=== PATIENT | female | born 1955 | race Caucasian/White ===

== ENCOUNTER 2021-03-18 13:38 | Inpatient (IN) | payer MEDICARE ==
[2021-03-18] MEDS ORDERED: Pantoprazole 40 MG VIAL ONE (14:25)
[2021-03-18 14:42] LABS: #Basophils 0.1 10x3/uL (0.0-0.2); #Eosinphils 0.2 10x3/uL (0.0-0.5); #Monocytes 0.4 10x3/uL (0.0-1.1); #Neutrophils 5.3 10x3/uL (1.5-8.4); %Basophils 0.8 % (0.0-2.0); %Eosinophils 2.9 % (0.0-6.0); %Lymphocytes 19.9 % (18.0-47.0); %Monocytes 5.3 % (0.0-10.0); %Neutrophils 70.6 % (40.0-75.0); Hemoglobin 8.9 g/dL (12.0-15.5); Mean Corpuscular HGB CONC 30.8 g/dL (32.0-36.0); Mean Corpuscular Hemoglobin 24.9 pg (27.0-33.0); Mean Platelet Volume 10.2 fl (7.4-10.4); Platelet Count 412 10x3/uL (150-450); Red Blood Cell (RBC) Count 3.57 10x6/uL (3.90-5.03); White Blood Cell (WBC) Count 7.5 10x3/uL (3.5-10.5)
[2021-03-18 15:00] LABS: ALT (SGPT) 8 U/L (8-55); AST (SGOT) 14 U/L (5-34); Albumin 2.1 g/dL (3.4-4.8); Alkaline Phosphatase 171 U/L (40-110); Anion Gap 20 mmol/L (10-20); BUN (Urea Nitrogen) 61 mg/dL (9.8-20.1); Bilirubin, Total 0.2 mg/dL (0.2-1.2); Calc. Creatinine Clearance 0 mL/min (70-130); Calcium 7.7 mg/dL (7.8-10.44); Carbon Dioxide 20 mmol/L (23-31); Chloride 99 mmol/L (98-107); Globulin 3.9 g/dL (2.4-3.5); Glucose 82 mg/dL (80-115); Lipase 27 U/L (8-78); Magnesium 3.8 mg/dL (1.6-2.6); Potassium 4.2 mmol/L (3.5-5.1); Sodium 135 mmol/L (136-145)
[2021-03-18] MEDS ORDERED: Cefepime 2 GM VIAL ONE (15:27)
[2021-03-18] MEDS ORDERED: Lorazepam 2 MG/ML VIAL ONE (16:57)
[2021-03-18 20:32] VITALS: BMI 23.9
[2021-03-18] MEDS: traZODone HCl 50 MG TAB PO SCH (21:11)
[2021-03-18] MEDS: Heparin 5,000 UNITS/ML VIAL SC SCH (21:11)
[2021-03-19 06:19] LABS: #Eosinphils 0.2 10x3/uL (0.0-0.5); #Monocytes 0.4 10x3/uL (0.0-1.1); #Neutrophils 5.8 10x3/uL (1.5-8.4); %Basophils 0.5 % (0.0-2.0); %Eosinophils 2.3 % (0.0-6.0); %Lymphocytes 16.8 % (18.0-47.0); %Monocytes 4.5 % (0.0-10.0); %Neutrophils 75.3 % (40.0-75.0); Mean Corpuscular Hemoglobin 24.7 pg (27.0-33.0); Mean Corpuscular Volume 79.6 fl (81.6-98.3); Mean Platelet Volume 10.2 fl (7.4-10.4); Platelet Count 376 10x3/uL (150-450); RBC Distribution Width 15.3 % (11.5-14.5); Red Blood Cell (RBC) Count 3.24 10x6/uL (3.90-5.03); White Blood Cell (WBC) Count 7.7 10x3/uL (3.5-10.5)
[2021-03-19 06:22] LABS: Anion Gap 19 mmol/L (10-20); BUN (Urea Nitrogen) 53 mg/dL (9.8-20.1); Calc. Creatinine Clearance 5 mL/min (70-130); Calcium 7.7 mg/dL (7.8-10.44); Carbon Dioxide 17 mmol/L (23-31); Chloride 104 mmol/L (98-107); Potassium 4.3 mmol/L (3.5-5.1); Sodium 136 mmol/L (136-145)
[2021-03-19 06:29] LABS: Glucose 49 mg/dL (80-115)
[2021-03-19] MEDS ORDERED: Dextrose 50% Abboject 50 ML SYRINGE SLOW IVP SCH (07:00)
[2021-03-19] MEDS ORDERED: Ondansetron PF 4 MG/2 ML Vial IVP SCH (07:00)
[2021-03-19] MEDS ORDERED: Epoetin (ESRD) 20,000 UNITS/ML SC SCH (07:00)
[2021-03-19 07:02] LABS: SARS-CoV-2 PCR by NAA Not Detected (NotDetected)
[2021-03-19] MEDS ORDERED: EPOETIN ALFA-EPBX (ESRD) 4,000 UNIT/ML VIAL SC SCH (08:00)
[2021-03-19] MEDS: Mirtazapine 15 MG Soltab PO SCH (08:35)
[2021-03-19] MEDS: Heparin 5,000 UNITS/ML VIAL SC SCH ×3 (08:35→20:09)
[2021-03-19] MEDS: Cholecalciferol 1,000 UNITS (25 MCG) TAB PO SCH (08:36)
[2021-03-19] MEDS ORDERED: hydrALAZINE 20 MG/ML VIAL SLOW IVP PRN (12:08)
[2021-03-19] MEDS: ALPRAZolam 0.25 MG TAB PO PRN (16:39)
[2021-03-19] MEDS: traZODone HCl 50 MG TAB PO SCH (20:09)
[2021-03-20] MEDS: ALPRAZolam 0.25 MG TAB PO PRN ×2 (02:40→10:42)
[2021-03-20] MEDS ORDERED: Ondansetron PF 4 MG/2 ML Vial IVP PRN (08:45)
[2021-03-20] MEDS: Cholecalciferol 1,000 UNITS (25 MCG) TAB PO SCH (10:42)
[2021-03-20] MEDS: Mirtazapine 15 MG Soltab PO SCH (10:42)
[2021-03-20] MEDS: Heparin 5,000 UNITS/ML VIAL SC SCH ×2 (10:42→18:49)
[2021-03-20 15:50] VITALS: BP 144/69; TEMP 97.7
== END 2021-03-20 19:47 | DRG 193 ==
LOC: CSHERS 13:38 → CSHTELE 18:54 → INTOOBSV 20:29 → UNDOADMOB 20:29 → CSHTELE 20:29 → OBSVTOIN 03-20 09:51
PROVIDERS: ADMIT Internal Medicine; ATTEND Internal Medicine
PROC: 3E1M39Z Irrigation of Peritoneal Cavity using Dialysate, Percutaneous Approach (ICD-10-PCS; principal; 2021-03-20)
DX: J18.9 Pneumonia, unspecified organism (principal); N18.6 End stage renal disease; J44.0 Chronic obstructive pulmonary disease with (acute) lower respiratory infection; I12.0 Hypertensive chronic kidney disease with stage 5 chronic kidney disease or end stage renal disease; J90 Pleural effusion, not elsewhere classified; Z94.0 Kidney transplant status; E46 Unspecified protein-calorie malnutrition; R19.7 Diarrhea, unspecified; Z20.822 Contact with and (suspected) exposure to COVID-19; Z66 Do not resuscitate; G25.81 Restless legs syndrome; F03.90 Unspecified dementia, unspecified severity, without behavioral disturbance, psychotic disturbance, mood disturbance, and anxiety; D63.1 Anemia in chronic kidney disease; F41.9 Anxiety disorder, unspecified; F32.9 Major depressive disorder, single episode, unspecified; F17.210 Nicotine dependence, cigarettes, uncomplicated; R19.00 Intra-abdominal and pelvic swelling, mass and lump, unspecified site; R26.9 Unspecified abnormalities of gait and mobility; G89.4 Chronic pain syndrome; E86.0 Dehydration; Z90.49 Acquired absence of other specified parts of digestive tract; Z91.040 Latex allergy status; Z99.2 Dependence on renal dialysis; Z88.8 Allergy status to other drugs, medicaments and biological substances; Z91.048 Other nonmedicinal substance allergy status; Z68.23 Body mass index [BMI] 23.0-23.9, adult; Z79.891 Long term (current) use of opiate analgesic; Z79.899 Other long term (current) drug therapy; Z90.710 Acquired absence of both cervix and uterus
CPT/HCPCS: 36415; 36416; 71045; 74177; 80048; 80053; 82274; 83605; 83690; 83735; 83880; 84484; 85025; 86850; 86900; 86901; 87040; 87070; 87205; 87635; 90945; 93005; 93010; 94640; 94660; 94760; 96365; 96366; 96367; 96372; 96375; 96376; C9113; G0257; G0378; J0360; J0692; J1644; J1956; J2060; J2405; J7620; Q5105; U0003; U0005